=== PATIENT | female | born 1990 | race Hispanic/Latino ===

== ENCOUNTER 2021-04-17 11:29 | Inpatient (IN) | payer OTHER ==
[2021-04-17] MEDS ORDERED: CARBOPROST TROME 250 MCG/ML IM PRN (14:36)
[2021-04-17] MEDS ORDERED: METHYLERGONOVINE 0.2MG/ML AMP IM PRN (14:36)
[2021-04-17] MEDS ORDERED: PENICILLIN 5 MU in NA CHLORIDE 0.9% 100 ML IV ONE (14:36)
[2021-04-17] MEDS ORDERED: Ringers Lactate 1,000 ML IV PRN (14:36)
[2021-04-17] MEDS ORDERED: PROMETHAZINE INJ 25 MG/ML AMP IM PRN ×2 (14:36)
[2021-04-17] MEDS ORDERED: miSOPROStoL 100 MCG TAB VAG PRN ×2 (14:47→15:00)
[2021-04-17] MEDS ORDERED: Ringers Lactate 1,000 ML IV SCH (15:00)
[2021-04-17] MEDS ORDERED: OXYTOCIN/LR 20 UNIT/1,000 ML BAG IV SCH (15:00)
[2021-04-17] MEDS ORDERED: miSOPROStoL 100 MCG TAB ONE (15:16)
[2021-04-17 15:21] VITALS: BMI 38.7
[2021-04-17 15:46] LABS: Absolute Lymphocytes (CBC) 1.4 K/uL (0.7-4.9); Basophils % 0.4 % (0-1.3); Hematocrit 33.5 % (36.0-45.0); Lymphocytes % 19.5 % (15.3-44.8); RBC Red Blood Cell Count 4.18 M/uL (3.86-4.86)
[2021-04-17 15:51] LABS: Urine Appearance TURBID (Clear); Urine Bilirubin NEGATIVE (Negative); Urine Blood 3+ (Negative); Urine Color DK YELLOW (Yellow); Urine Glucose NEGATIVE (Negative); Urine Protein TRACE (Negative); Urine Specific Gravity 1.015 (1.005-1.030); Urine pH 6.5 (5.0-7.0)
[2021-04-17 16:23] LABS: Urine Microscopic Reflex ORDER UMIC
[2021-04-17 16:26] LABS: Urine Bacteria 20-50 /HPF (<20)
[2021-04-17 16:27] LABS: Urine Mucus 2+ /HPF (NONE SEEN)
[2021-04-17] MEDS ORDERED: PENICILLIN 2.5 MU in NA CHLORIDE 0.9% 100 ML IV SCH (17:00)
[2021-04-17] MEDS ORDERED: ZOLPIDEM TARTRATE 10 MG TABLET PO PRN (19:26)
[2021-04-17] MEDS: BUTORPHANOL 1 MG/ML INJ IV PRN ×2 (19:46→23:52)
--- NOTE | 2021-04-17 20:51 | PREOPHP ---
Date of Admission: 04/17/2021 History Of Present Illness: Sofia Matias 30-year-old 5, para 3, now at 39 weeks and 4 days fo r Cytotec induction. Pros and cons of this thoroughly discussed prior to admission. Family History: Maternal aunt and maternal uncle with diabetes. Past Medical History: She has had her wisdom teeth removed. No other surgery. Allergies: NO ALLERGIES. Medications: vitamins prior to admission. Social History: Does not smoke. Physical Examination: HEENT: Clear. Pupils equal, round, reactive to light and accommodation. Conjunctivae well perfused . No oral, lingual, or buccal lesions. Chest and Lungs: Clear. Heart: Without murmurs, thrills, heaves, or rubs. Breasts: Without masses on previous visits. Abdomen: Term size. Extremities: Clear. Cervix: 1.5, posterior, 50%, baby is vertex. Assessment And Plan: 25 mcg of Cytotec inserted. We will insert another 25 mcg in 6 hours if needed . If membranes rupture of course, we will stop. She is strep positive. We will start penicillin prophylaxis if she ruptures membranes or begins active labor. Full labor talk given. NBC/MODL Voice ID: [id number]
[2021-04-18] MEDS ORDERED: PENICILLIN G POT 5 MU/VIAL IV ONE (00:27)
[2021-04-18 00:47] LABS: RPR (Rapid Plasma Reagin) NON-REACT (NON-REACT)
[2021-04-18] MEDS ORDERED: METHYLERGONOVINE 0.2MG/ML AMP IM ONE (03:51)
[2021-04-18] MEDS ORDERED: CARBOPROST TROME 250 MCG/ML IM ONE (03:51)
[2021-04-18] MEDS ORDERED: BISACODYL 10 MG RECTAL SUPP PR PRN (03:57)
[2021-04-18] MEDS ORDERED: Oxycodone HCl/Acetaminophen 1 TAB TAB PO PRN ×2 (03:57)
[2021-04-18] MEDS ORDERED: ACETAMINOPHEN 500 MG TAB PO PRN (03:57)
[2021-04-18] MEDS ORDERED: DOCUSATE NA/SENNA CONC 1 TAB PO PRN (03:57)
[2021-04-18] MEDS ORDERED: DIPHENHYDRAMINE 25 MG TAB/CAP PO PRN (03:57)
[2021-04-18] MEDS ORDERED: IBUPROFEN 200 MG TAB PO PRN (03:57)
[2021-04-18] MEDS ORDERED: OXYTOCIN/LR 20 UNIT/1,000 ML BAG IV SCH (04:00)
--- NOTE | 2021-04-18 05:58 | PN ---
The patient has had 2 doses of Stadol. Expected decreased [id number] variability, but still reason able. She is now 9 cm, in fact she has an anterior cervical lips that look a bit edematous. She is at +1 to +2 station. She does not really have a severe urge to push at this point. We will start he r on light Pitocin and when baby comes down another inch or so I think she will be ready to deliver, which should be relatively soon. KEV/JOSE ARMANDO Voice ID: [id number] Report ID: [id number]
--- NOTE | 2021-04-18 10:52 | PN ---
, doing quite well, is . Having mild cramps with . Otherwise, n o problems or complaints. She has had her Tdap shot. She has had COVID immunizations, flu shot. Sh guerrero can get sometime later this week at my office if she chooses. Full talk given. If all goes well, she will go home tomorrow whenever the calciminer releases the baby. Doing well at this point. KEV/JOSE ARMANDO Voice ID: [id number] Report ID: [id number]
--- NOTE | 2021-04-18 11:13 | OP ---
Surgeon: Heladio Lopez MD Procedure In Detail: This is a 30-year-old, multiparous female, 39 weeks and 3 days. Had Cytotec in serted 25 mcg. Went into a fairly active labor thereafter. Rh positive, immune to rubella, negative COVID, positive strep, 2 doses of penicillin during the labor. Had 2 doses of Stadol IV, otherwise used Lamaze breathing techniques. At 9.5 cm, had rupture of membranes, clear fluid. [facility] 1 set of pushes. Spontaneous delivery of an estimated 7 pounds male , Apgars 9 and 9. No episiotomy. No laceration. Schultze delivery of the placenta, which was inspected and noted to be intact and normal. Less than 200 mL blood loss. Tolerated all procedures well. Final Diagnoses: Term intrauterine , 5, para 3, 39 weeks 4 days at delivery. Cytot ec for labor induction. Penicillin prophylaxis. Spontaneous vaginal delivery. KEV/JOSE ARMANDO Voice ID: [id number] Report ID: [id number]
--- NOTE | 2021-04-19 08:35 | DS ---
Hospital Course: Sofia Matias is a 30-year-old, multiparous female, delivered of estimated 7-pound pl us male infant, Apgars 9 and 9. No episiotomy. No laceration. Less than 200 mL blood loss. Two do ses of penicillin during the labor secondary to beta strep positive status. ; afebrile, am bulating, voiding. Lochia is normal. Full talk given. She will be dismissed later today to report back to my office in 6 weeks for followup to report any temperature elevation of 100 degre es or greater, severe pain, heavy bleeding, or any other type of abnormalities. Requests no analgesi cs on dismissal. Rh positive, immune to Rubella. She has had all of her immunizations. Doing quite well. No complaints. Final Diagnoses: Term intrauterine , vaginal delivery, penicillin prophylaxis. KEV/JOSE ARMANDO Voice ID: [id number] Report ID: [id number]
[2021-04-19 09:46] VITALS: BP 106/73; TEMP 97
[2021-04-21 18:26] LABS: HBsAG Nonreactive (Nonreactive)
== END 2021-04-19 09:45 | disposition home or self-care (01) | DRG 807 ==
LOC: 2ND-WC 14:44
PROVIDERS: ADMIT Specialist; ATTEND Specialist
PROC: 10E0XZZ Delivery of Products of Conception, External Approach (ICD-10-PCS; principal; 2021-04-18)
PROC: 3E0DXGC Introduction of Other Therapeutic Substance into Mouth and Pharynx, External Approach (ICD-10-PCS; 2021-04-18)
PROC: 10907ZC Drainage of Amniotic Fluid, Therapeutic from Products of Conception, Via Natural or Artificial Opening (ICD-10-PCS; 2021-04-18)
DX: O99.824 Streptococcus B carrier state complicating childbirth (principal); Z37.0 Single live birth; Z3A.39 39 weeks gestation of pregnancy; Z20.822 Contact with and (suspected) exposure to COVID-19
CPT/HCPCS: 36415; 81003; 81015; 85025; 86592; 86901; 87086; 87088; 87340; J0595; J2210; J2540; J2550; J2590; J7120; U0003

== ENCOUNTER 2023-10-01 12:19 | Day surgery (SDC) | payer BC, OTHER ==
[2023-09-30 12:24] LABS: Anion Gap 8.6 mEq/L (5.0-15.0); Potassium 4.6 mEq/L (3.5-5.1)
--- NOTE | 2023-09-30 17:03 | EKG ---
Test Date: 2023-09-30 Test Time: 12:47:06 [employer]: KEYANA MEASUREMENT RESULTS: Intervals: Rate: 89 KS: 146 QRSD: 78 QT: 338 QTc: 411 [place]: P: 45 KS: 146 QRS: 34 T: 31 INTERPRETIVE STATEMENTS: Normal sinus rhythm Normal ECG No previous ECG available for comparison Electronically Signed On 09-30-23 17:02:06 [employer] by Kishor Jose
[2023-10-01] MEDS: Ringers Lactate 1,000 ML IV ONE (12:45)
[2023-10-01] MEDS ORDERED: propofoL 200 MG/20 ML VIAL IV ONE ×2 (12:47→12:48)
[2023-10-01] MEDS ORDERED: MIDAZOLAM HCL 2 MG/2 ML INJ ONE (12:47)
[2023-10-01] MEDS ORDERED: LIDOCAINE 1% MPF 30 ML VIAL ONE (12:48)
[2023-10-01 13:21] VITALS: O2SAT 99
[2023-10-01 15:31] VITALS: BP 120/66; TEMP 1342
== END 2023-10-01 13:50 | disposition home or self-care (01) ==
LOC: OR 12:19
PROVIDERS: ATTEND Surgery
PROC: 0DB68ZX Excision of Stomach, Via Natural or Artificial Opening Endoscopic, Diagnostic (ICD-10-PCS; 2023-10-01)
PROC: 0DB18ZX Excision of Upper Esophagus, Via Natural or Artificial Opening Endoscopic, Diagnostic (ICD-10-PCS; 2023-10-01)
PROC: 0DB48ZX Excision of Esophagogastric Junction, Via Natural or Artificial Opening Endoscopic, Diagnostic (ICD-10-PCS; 2023-10-01)
PROC: 0DB98ZX Excision of Duodenum, Via Natural or Artificial Opening Endoscopic, Diagnostic (ICD-10-PCS; principal; 2023-10-01 13:45)
DX: R10.13 Epigastric pain (principal); F41.9 Anxiety disorder, unspecified; F32.A Depression, unspecified; K80.00 Calculus of gallbladder with acute cholecystitis without obstruction; K29.50 Unspecified chronic gastritis without bleeding
CPT/HCPCS: 93005; 80048; 36415; 84703; 43239; J2704; J2001; J2250; J7120; 88305; 88312